=== PATIENT | male | born 2000 | race Hispanic/Latino ===

== ENCOUNTER 2021-06-15 13:52 | Emergency (ER) | payer SELFPAY ==
--- NOTE | 2021-06-15 16:12 | Emergency Department Report ---
ED Back Pain/Injury HPI - General Chief Complaint: Back Pain/Injury Stated Complaint: LOWER LT BACK PAIN Time Seen by Provider: 06/15/21 16:01 Source: patient Limitations: No Limitations - History of Present Illness Initial Comments: Patient is a 21-year-old male presents emergency room with complaints of left flank pain and left lower back pain that began 3 days ago. He states he has been increasing his water intake and taking cranberry pills without any relief. He denies any fall or injury. He states his pain is worse with lifting his left leg. He states that it feels like intermittent sharp pains which come in waves. He denies ever having in the past. He denies any fever, vomiting, diarrhea, dysuria, dark urine, odor to the urine, urinary frequency, numbness, weakness, bowel or bladder incontinence, penile discharge, pain or swelling in the testicles. No past medical history. Allergy to penicillin. - Related Data Previous Rx's Medication Instructions Recorded Last Taken Type Menthol/Camphor [[place] 1 applicatio TP BID #18 oint...g. 06/15/21 Unknown Rx Ointment] Naproxen 375 mg PO BID PRN #20 tablet 06/15/21 Unknown Rx methOCARBAMOL [Robaxin TAB] 500 mg PO BID PRN #20 tab 06/15/21 Unknown Rx traMADoL [Ultram 50 MG tab] 50 mg PO Q6HR PRN #10 tablet 06/15/21 Unknown Rx Allergies Allergy/AdvReac Type Severity Reaction Status Date / Time Penicillins Allergy Unknown Verified 06/15/21 15:05 ED Review of Systems ROS: Stated complaint: LOWER LT BACK PAIN Other details as noted in HPI Comment: All other systems reviewed and negative ED Past Medical Hx - Past Medical History Previous Medical History?: No - Surgical History Past Surgical History?: No - Medications Home Medications: Home Medications Medication Instructions Recorded Confirmed Last Taken Type Menthol/Camphor [[place] 1 applicatio TP BID #18 oint...g. 06/15/21 Unknown Rx Ointment] Naproxen 375 mg PO BID PRN #20 tablet 06/15/21 Unknown Rx methOCARBAMOL [Robaxin TAB] 500 mg PO BID PRN #20 tab 06/15/21 Unknown Rx traMADoL [Ultram 50 MG tab] 50 mg PO Q6HR PRN #10 tablet 06/15/21 Unknown Rx ED Physical Exam - General Limitations: No Limitations General appearance: alert, in no apparent distress - Head Head exam: Present: atraumatic, normocephalic - Eye Eye exam: Present: normal appearance - ENT ENT exam: Present: mucous membranes moist - Respiratory Respiratory exam: Present: normal lung sounds bilaterally. Absent: respiratory distress, wheezes, rales, rhonchi, stridor, chest wall tenderness, accessory muscle use, decreased breath sounds, prolonged expiratory - Cardiovascular Cardiovascular Exam: Present: regular rate, normal rhythm, normal heart sounds. Absent: systolic murmur, diastolic murmur, rubs, gallop - GI/Abdominal GI/Abdominal exam: Present: soft, normal bowel sounds. Absent: distended, t enderness, guarding, rebound, rigid - Back Exam Back exam: Present: normal inspection, full ROM, CVA tenderness (L), paraspinal tenderness (left lumbar paraspinal muscular ttp, no midline C-spine, T-spine or L-spine ttp, no step offs, no deformities ). Absent: CVA tenderness (R), vertebral tenderness - Neurological Exam Neurological exam: Present: alert, oriented X3, CN II-XII intact, normal gait. Absent: motor sensory deficit - Psychiatric Psychiatric exam: Present: normal affect, normal mood - Skin Skin exam: Present: warm, dry, intact ED Course Vital Signs 06/15/21 06/15/21 06/15/21 15:07 20:19 22:02 Temperature 98.1 F 98.1 F Pulse Rate 120 H 79 Respiratory 16 18 18 Rate Blood Pressure 135/87 Blood Pressure 104/71 [Left] O2 Sat by Pulse 100 100 Oximetry ED Medical Decision Making - Lab Data Result diagrams: 06/15/21 16:51 06/15/21 16:51 Lab Results 06/15/21 06/15/21 06/15/21 Range/Units 16:51 16:51 18:41 WBC 18.6 H (4.5-11.0) K/mm3 RBC 5.14 H (3.65-5.03) M/mm3 Hgb 15.7 H (11.8-15.2) gm/dl Hct 46.7 H (35.5-45.6) % MCV 91 (84-94) fl MCH 31 (28-32) pg MCHC 34 (32-34) % RDW 13.5 (13.2-15.2) % Plt Count 343 (140-440) K/mm3 Lymph % (Auto) 15.5 (13.4-35.0) % [place] % (Auto) 7.0 (0.0-7.3) % Eos % (Auto) 1.4 (0.0-4.3) % Baso % (Auto) 0.4 (0.0-1.8) % Lymph # (Auto) 2.9 (1.2-5.4) K/mm3 [place] # (Auto) 1.3 H (0.0-0.8) K/mm3 Eos # (Auto) 0.3 (0.0-0.4) K/mm3 Baso # (Auto) 0.1 (0.0-0.1) K/mm3 Seg Neutrophils % 75.7 H (40.0-70.0) % Seg Neutrophils # 14.1 H (1.8-7.7) K/mm3 Sodium 137 (137-145) mmol/L Potassium 3.7 (3.6-5.0) mmol/L Chloride 99.9 (98-107) mmol/L Carbon Dioxide 25 (22-30) mmol/L Anion Gap 16 mmol/L BUN 14 (9-20) mg/dL Creatinine 0.8 (0.8-1.3) mg/dL Estimated GFR > 60 ml/min BUN/Creatinine Ratio 18 % Glucose 80 (75-100) mg/dL Calcium 10.0 (8.4-10.2) mg/dL Total Bilirubin 0.50 (0.1-1.2) mg/dL AST 11 (5-40) units/L ALT 6 L (7-56) units/L Alkaline Phosphatase 109 (35-129) units/L Total Creatine Kinase 37 L (55-170) units/L Total Protein 7.7 (6.3-8.2) g/dL Albumin 4.7 (3.9-5) g/dL Albumin/Globulin Ratio 1.6 % Urine Color (Yellow) Urine Turbidity (Clear) Urine pH (5.0-7.0) Ur Specific [place] (1.003-1.030) Urine Protein (Negative) mg/dL Urine Glucose (UA) (Negative) mg/dL Urine Ketones (Negative) mg/dL Urine Blood (Negative) Urine Nitrite (Negative) Urine Bilirubin (Negative) Urine Urobilinogen (<2.0) mg/dL Ur Leukocyte Esterase (Negative) Urine WBC (Auto) (0.0-6.0) /HPF Urine RBC (Auto) (0.0-6.0) /HPF U Epithel Cells (Auto) (0-13.0) /HPF Urine Bacteria (Auto) (Negative) /HPF Urine Mucus /HPF 06/15/21 Range/Units Unknown WBC (4.5-11.0) K/mm3 RBC (3.65-5.03) M/mm3 Hgb (11.8-15.2) gm/dl Hct (35.5-45.6) % MCV (84-94) fl MCH (28-32) pg MCHC (32-34) % RDW (13.2-15.2) % Plt Count (140-440) K/mm3 Lymph % (Auto) (13.4-35.0) % [place] % (Auto) (0.0-7.3) % Eos % (Auto) (0.0-4.3) % Baso % (Auto) (0.0-1.8) % Lymph # (Auto) (1.2-5.4) K/mm3 [place] # (Auto) (0.0-0.8) K/mm3 Eos # (Auto) (0.0-0.4) K/mm3 Baso # (Auto) (0.0-0.1) K/mm3 Seg Neutrophils % (40.0-70.0) % Seg Neutrophils # (1.8-7.7) K/mm3 Sodium (137-145) mmol/L Potassium (3.6-5.0) mmol/L Chloride (98-107) mmol/L Carbon Dioxide (22-30) mmol/L Anion Gap mmol/L BUN (9-20) mg/dL Creatinine (0.8-1.3) mg/dL Estimated GFR ml/min BUN/Creatinine Ratio % Glucose (75-100) mg/dL Calcium (8.4-10.2) mg/dL Total Bilirubin (0.1-1.2) mg/dL AST (5-40) units/L ALT (7-56) units/L Alkaline Phosphatase (35-129) units/L Total Creatine Kinase (55-170) units/L Total Protein (6.3-8.2) g/dL Albumin (3.9-5) g/dL Albumin/Globulin Ratio % Urine Color Yellow (Yellow) Urine Turbidity Clear (Clear) Urine pH 6.0 (5.0-7.0) Ur Specific [place] 1.006 (1.003-1.030) Urine Protein <15 mg/dl (Negative) mg/dL Urine Glucose (UA) Neg (Negative) mg/dL Urine Ketones Neg (Negative) mg/dL Urine Blood Lg (Negative) Urine Nitrite Neg (Negative) Urine Bilirubin Neg (Negative) Urine Urobilinogen < 2.0 (<2.0) mg/dL Ur Leukocyte Esterase Neg (Negative) Urine WBC (Auto) 2.0 (0.0-6.0) /HPF Urine RBC (Auto) 59.0 (0.0-6.0) /HPF U Epithel Cells (Auto) < 1.0 (0-13.0) /HPF Urine Bacteria (Auto) 1+ (Negative) /HPF Urine Mucus Few /HPF Vital Signs 06/15/21 06/15/21 06/15/21 15:07 20:19 22:02 Temperature 98.1 F 98.1 F Pulse Rate 120 H 79 Respiratory 16 18 18 Rate Blood Pressure 135/87 Blood Pressure 104/71 [Left] O2 Sat by Pulse 100 100 Oximetry - Medical Decision Making Patient is a 21-year-old male presents emergency room with complaints of left flank pain and left lower back pain that began 3 days ago. He states he has been increasing his water intake and taking cranberry pills without any relief. He denies any fall or injury. He states his pain is worse with lifting his left leg. He states that it feels like intermittent sharp pains which come in waves. He denies ever having in the past. He denies any fever, vomiting, diarrhea, dysuria, dark urine, odor to the urine, urinary frequency, numbness, weakness, bowel or bladder incontinence, penile discharge, pain or swelling in the testicles. No past medical history. Allergy to penicillin. Initial vitals with tachycardia which improved upon repeat to normal. On exam:left lumbar paraspinal muscular ttp, no midline C-spine, T-spine or L-spine ttp, no step off s, no deformities, left CVA tenderness, no skin changes, compartments are soft, no erythema, no increased warmth, no rashes, no edema. Labs with nonspecific leukocytosis, otherwise stable. UA with red blood cells. Patient given pain medication while in the emergency department as he did not drive with improvement of his symptoms. He is ambulatory without difficulty. Patient has no red flag warning signs of back pain, no trauma, no unexplained weight loss, no fever, no IV drug use, no steroid use, no history of cancer, no neuro deficits, no saddle numbness. Patient endorses occasional tobacco and marijuana use but denies any other drug use and does not use IV drugs. Discussed case with Dr. Acevedo, ER attending who believes leukocytosis could be secondary to stress reaction, patient does not have any indication of bacterial pathology at this time. Patient given prescription for medications. Advised patient Please take medication as prescribed. Increase your water intake. Follow-up with your primary care doctor. Follow-up with a on site services specialist. Follow-up with urologist. Return to emergency room for any new or worsening symptoms. Critical care attestation.: If time is entered above; I have spent that time in minutes in the direct care of this critically ill patient, excluding procedure time. ED Disposition Clinical Impression: Left flank pain Low back pain Qualifiers: Chronicity: acute Back pain laterality: left Sciatica presence: unspecified whether sciatica present Qualified Code(s): M54.5 - Low back pain Hematuria Qualifiers: Hematuria type: unspecified type Qualified Code(s): R31.9 - Hematuria, unspecified Disposition: 01 HOME / SELF CARE / HOMELESS Is pt being admited?: No Does the pt Need Aspirin: No Condition: Stable Instructions: Acute Back Pain, Adult, Flank Pain, Adult Additional Instructions: Please take medication as prescribed. Increase your water intake. Follow-up with your primary care doctor. Follow-up with a on site services specialist. Follow-up with urologist. Return to emergency room for any new or worsening symptoms. Prescriptions: Naproxen 375 mg PO BID PRN #20 tablet PRN Reason: pain methOCARBAMOL [Robaxin TAB] 500 mg PO BID PRN #20 tab PRN Reason: muscle spasm/pain Menthol/Camphor [[place] Ointment] 1 applicatio TP BID #18 oint...g. traMADoL [Ultram 50 MG tab] 50 mg PO Q6HR PRN #10 tablet PRN Reason: Pain , Severe (7-10) Referrals: [facility] [Provider Group] - 3-5 Days SANTOSH ROSE MD [Staff Physician] - 3-5 Days YUKI FRITZ MD [Staff Physician] - 3-5 Days MELISSA ASHBY II, MD [Staff Physician] - 3-5 Days Time of Disposition: 20:49 Print Language: DIVEHI
--- NOTE | 2021-06-15 16:48 | Cat Scan Report ---
CT ABDOMEN AND PELVIS WITHOUT CONTRAST INDICATION / CLINICAL INFORMATION: LEFT flank pain, LEFT lower back pain. TECHNIQUE: Axial CT images were obtained through the abdomen and pelvis without IV contrast. All CT scans at this location are performed using CT dose reduction for ALARA by means of automated exposure control. COMPARISON: None available. FINDINGS: LOWER CHEST: No significant abnormality. LIVER: No significant abnormality. GALLBLADDER: No significant abnormality. BILE DUCTS: No significant abnormality. PANCREAS: No significant abnormality. SPLEEN: No significant abnormality. ADRENALS: No significant abnormality. RIGHT KIDNEY / URETER: No significant abnormality. LEFT KIDNEY / URETER: No significant abnormality. STOMACH / SMALL BOWEL: No significant abnormality. COLON: No significant abnormality. APPENDIX: No significant abnormality. PERITONEUM: No free fluid. No free air. No fluid collection. LYMPH NODES: No significant adenopathy. AORTA / ARTERIES: No significant abnormality. IVC / VEINS: No significant abnormality. URINARY BLADDER: No significant abnormality. REPRODUCTIVE ORGANS: No significant abnormality. ADDITIONAL FINDINGS: None. SKELETAL SYSTEM: No significant abnormality. IMPRESSION: 1. No acute process in the abdomen or pelvis. 2. No urinary tract stones or hydronephrosis. Signer Name: Jhonny Ulloa MD Signed: 06/15/2021 4:44 PM Workstation Name: [id number]
[2021-06-15 17:15] LABS: Basophils # (Auto) 0.1 K/mm3 (0.0-0.1); Basophils % (Auto) 0.4 % (0.0-1.8); Eosinophils # (Auto) 0.3 K/mm3 (0.0-0.4); Eosinophils % (Auto) 1.4 % (0.0-4.3); Hematocrit 46.7 % (35.5-45.6); Hemoglobin 15.7 gm/dl (11.8-15.2); Lymphocytes # (Auto) 2.9 K/mm3 (1.2-5.4); Lymphocytes % (Auto) 15.5 % (13.4-35.0); Mean Corpuscular HGB Conc 34 % (32-34); Mean Corpuscular Volume 91 fl (84-94); Monocytes # (Auto) 1.3 K/mm3 (0.0-0.8); Platelet Count 343 K/mm3 (140-440); Red Blood Count 5.14 M/mm3 (3.65-5.03); Red Cell Distribution Width 13.5 % (13.2-15.2)
[2021-06-15 17:38] LABS: Alanine Aminotransferase 6 units/L (7-56); Albumin 4.7 g/dL (3.9-5); BUN/Creatinine Ratio 18; Blood Urea Nitrogen 14 mg/dL (9-20); Hemolysis Index 16
[2021-06-15 18:31] LABS: Bacteria,Urine 1+ /HPF (Negative); Bilirubin,Urine NEG (Negative); Blood,Urine LG (Negative); Color,Urine Yellow (Yellow); Mucus,Urine FEW /HPF; Protein,Urine <15 mg/dL mg/dL (Negative); Urobilinogen,Urine < 2.0 mg/dL (<2.0)
[2021-06-15] MEDS ORDERED: ONDANSETRON 4 MG ODT TAB PO ONE (18:40)
[2021-06-15] MEDS ORDERED: oxyCODONE /ACETAMINOPHEN 5-325MG TAB PO ONE (18:40)
[2021-06-15 22:03] VITALS: BP 104/71
== END 2021-06-15 21:05 | disposition home or self-care (01) ==
LOC: ED 13:52
DX: M54.5 Low back pain (principal); R31.9 Hematuria, unspecified; R10.9 Unspecified abdominal pain; Z88.0 Allergy status to penicillin; Z79.899 Other long term (current) drug therapy
CPT/HCPCS: 36415; 74176; 80053; 81001; 82550; 85025; Q0162